=== PATIENT | male | born 1960 | race Caucasian/White ===

== ENCOUNTER 2023-08-31 09:59 | Outpatient (REF) | payer MEDICARE, SELFPAY ==
--- NOTE | ~2023-08-31 | XR_ITS ---
EXAMINATION: XR LEFT WRIST CLINICAL INFORMATION: Pain in left wrist, ORIF for fracture. COMPARISON: 09/05/2023 fluoroscopy in OR. TECHNIQUE: 4 views of the left wrist. FINDINGS: There is a comminuted, impacted, mildly displaced fracture of the distal radius which may extend to the distal articular surface. Mildly displaced, impacted fracture of the distal ulna. XR/XR wrist LT w scaphoid IMPRESSION: Comminuted, impacted, mildly displaced fracture of the distal radius which may extend to the distal articular surface. Mildly displaced, impacted fracture of the distal ulna. Images were presented for interpretation subsequent to performance of intraoperative ORIF on September 05, 2023. Please refer to that report for more detailed evaluation.
== END 2023-08-31 10:00 | disposition home or self-care (01) ==
LOC: HO.HOSX 09:59
PROVIDERS: Visit Provider Orthopaedic Surgery
DX: S52.502A Unspecified fracture of the lower end of left radius, initial encounter for closed fracture (principal); S52.602A Unspecified fracture of lower end of left ulna, initial encounter for closed fracture; W19.XXXA Unspecified fall, initial encounter; Y93.9 Activity, unspecified; Y92.9 Unspecified place or not applicable; Y99.9 Unspecified external cause status
CPT/HCPCS: 73110; 99202

== ENCOUNTER 2023-08-31 09:59 | Outpatient (AMB) | payer MEDICARE, SELFPAY ==
--- NOTE | 2023-08-31 10:29 | MHC.OFFVIS ---
Vital Signs 08/31/23 10:34 Height 6 ft Weight 220 lb BMI 29.8 Handedness Right Intake Visit Reasons: FC- LT wrist distal radius fx Intake Note: Moises is a 62 year old right hand dominant who presents today for a evaluation of his left wrist fx, DOI 08/29/23. Patient reports he was doing yard work and he was pulling on a vine and he fell landing on the left wrist. He states having throbbing pain on both sides of the wrist. Having numbness in his fingers with swelling. Allergies No Known Allergies Allergy (Verified 08/31/23 10:32) HPI HPI FC- LT wrist distal radius fx: Details: Moises is a 62 year old right hand dominant man who presents for a left wrist fracture. He fell while doing yard work, pulling louie, landing on his left wrist, DOI: 08/29/23. He was seen a [facility] and placed in a wrist splint. He complains of pain about his whole wrist. He denies having any pain about the elbow or proximal forearm.. He denies having trouble with numbness and tingling. He says he smokes occasionally. PFSH Medical History (Updated 08/31/23 @ 10:48 by Moi Baumann) Hx of hypotension Social History (Updated 08/31/23 @ 10:34 by Yannick Benoit) Alcohol intake: current Alcohol intake frequency: holidays/special occasions only Patient Tobacco Use Status: Never used Tobacco Current occupational status: unemployed Current occupation: right hand dominant Review of Systems Const All systems reviewed & are unremarkable except as noted in HPI and below Physical Exam Vital Signs: BMI result Body Mass Index 29.8 Const General: cooperative, healthy appearing and no acute distress Orientation/consciousness: patient oriented x3 HEENT Head: Yes normocephalic and Yes atraumatic Eyes EOM: EOMs intact bilaterally Resp Effort & Inspection: normal respiratory effort and able to speak in complete sentences Cardio Jugular venous distension: no JVD Skin General skin exam: turgor normal Rashes: no rashes Neuro General: patient oriented x3 Extrem Other: Evaluation of Left Upper Extremity: The patient is alert, oriented, and in no acute distress Sensation intact to the tips of the digits. He can weakly bring his fingers closed towards a fist and then back into extension. He is most tender to palpation about the distal radius and distal ulna. He does have some swelling and ecchymosis. He is not particularly tender to palpation about the left elbow or proximal forearm squeeze. Good elbow flexion and extension without pain. No lacerations or evidence of open fracture. Radiographs: 3 views of the left wrist, plus a scaphoid view, were taken and viewed by me today in clinic. They show a comminuted distal radius intra-articular extension and some dorsal translation. There is also a nondisplaced fracture through the neck of the distal ulna, and also at the base of the ulnar styloid. Psych Appearance: grossly normal Affect: normal affect Attitude: cooperative Assessment & Plan Assessment & Plan (1) Fracture of left distal radius: Code(s): S52.502A - Unspecified fracture of the lower end of left radius, initial encounter for closed fracture Category: Medical (2) Fracture of distal end of left ulna: Code(s): S52.602A - Unspecified fracture of lower end of left ulna, initial encounter for closed fracture Category: Medical Plan Assessment & Plan: 1. Left distal radius fracture, comminuted & intra-articular From a fall, DOI: 08/29/23 2. Left distal ulna fracture, at the neck of the ulna From a fall, DOI: 08/29/23 I educated him about this condition I discussed operative and non-operative treatment options The patient would like to proceed with surgery The risks and benefits of operative treatment were discussed with the patient and the patient wishes to proceed with surgery. These risks include, but are not limited to risk of damage to blood vessels, nerves, tendons, infection, recurrence, incomplete relief of preoperative symptoms, persistent pain, possible need for further surgery and the risks associated with regional blocks and anesthesia. The plan is to take the patient to the operating room sometime on 09/05/23 for the following procedures: 1. Left distal radius ORIF, under general 2. Possible left distal ulna ORIF, under general All of the preoperative paperwork including the consent was reviewed today. All the patient's questions were answered. The patient understands that they will be contacted by our associate professor of surgery soon to schedule this procedure He denies Diabetes, blood thinners, asthma, heart, lung, kidney issues Scribed for Yumi Alberto MD by Moi Baumann pediatrician/medical doctor, on 08/31/23 at 10:50 AM, EST. Orders: Orders XR wrist LT w scaphoid Today M25.532 - Pain in left wrist Medications: New hydrocodone-acetaminophen 5-325 mg Partial Fill upon patient request. 1 tab PO Q4-6H PRN 10 tabs 0RF pain Coding Level of Care Code New Pt Level 4 (23724) Diagnoses Fracture of left distal radius S52.502A Fracture of distal end of left ulna S52.602A
[2023-08-31 10:34] VITALS: BMI 29.8
== END 2023-08-31 11:36 | disposition home or self-care (01) ==
PROVIDERS: Visit Provider Orthopaedic Surgery
DX: S52.502A Unspecified fracture of the lower end of left radius, initial encounter for closed fracture (principal); S52.602A Unspecified fracture of lower end of left ulna, initial encounter for closed fracture
CPT/HCPCS: 99204

== ENCOUNTER 2023-09-05 07:26 | Day surgery (SDC) | payer MEDICARE, SELFPAY ==
[2023-09-05] VITALS (7 sets, daily range): BP systolic 119–190; BP diastolic 75–89; PULSE 68–84; RESP 12–18; TEMP 36.1–36.9; O2SAT 93–97; BMI 30.8
--- NOTE | ~2023-09-05 | FL_ITS ---
EXAMINATION: XR FLUOROSCOPY WITH IMAGES CLINICAL INFORMATION: Left radius ORIF COMPARISON: None available. TECHNIQUE: Fluoroscopy Supervised By: Dr. Yumi Alberto. Fluoroscopy Time: 23.5 sec. Cumulative Dose: 0.6528 mGy. DAP: 0.0935 Gycm2. Images: 4. FINDINGS: Intraoperative fluoroscopy and spot films were performed during a procedure in the OR. There is a comminuted fracture involving the distal radius and there is placement of a plate and screw device. An associated nondisplaced ulnar fracture is seen as well. Please correlate with Dr. Dr. Yumi Alberto's report for complete details. FL/FL guidance in OR IMPRESSION: Intraoperative fluoroscopy and spot films were obtained. Please see Dr. Dr. Yumi Alberto's report for complete details.
[2023-09-05] MEDS: Lactated Ringers 1,000 ML 100 ML IVCONT (08:14)
--- NOTE | 2023-09-05 08:26 | HO.ANESPROP2 ---
HPI - Anesthesia Eval Consult details Narrative: for radius fracture repair PMFSH Active Problems Active Problems: All Active Problems Fracture of distal end of left ulna (Acute) Fracture of left distal radius (Acute) Past Medical History Medical History Asthma High cholesterol Hypertension Hx of hypotension Family History Family history of problems with anesthesia: No Surgical History Surgical History History of elbow surgery Previous back surgery History of Problems with Anesthesia: No Social History Social History Alcohol intake: current Alcohol intake frequency: holidays/special occasions only Patient Tobacco Use Status: Former Tobacco user Tobacco use type: Cigarette Years Smoked: 25 Smoked in Last 30 Days: No Use of substances other than those prescribed or required for medical reasons: Yes Substance Use Frequency: Occasionally Are you DNR?: No Advance Directives: No Advance Directives Information Provided: Yes Current occupational status: unemployed Current occupation: right hand dominant Meds Allergies Allergy/AdvReac Type Severity Reaction Status Date / Time No Known Allergies Allergy Verified 09/05/23 07:35 Active Medications: Current Medications Albuterol Sulfate (Albuterol Sulfate (0.083%) 2.5 Mg/3 Ml Vial.Neb) 2.5 mg INHALE PREOP ONE Stop: 09/05/23 08:26 Lactated Ringer's (Lr) 1,000 mls @ 100 mls/hr IVCONT .Q10H JESS Last Admin: 09/05/23 08:14 Dose: 100 mls/hr Home Medications ?Medication ?Instructions ?Recorded ?Confirmed ?Last Taken ?Type acetaminophen 325 mg capsule 650 mg PO QID PRN Pain 08/31/23 09/05/23 Unknown History albuterol sulfate 90 mcg/actuation 2 puff inhalation Q6H PRN wheezing 09/05/23 09/05/23 Unknown History aerosol inhaler atorvastatin 10 mg tablet 10 mg PO DAILY 09/05/23 09/05/23 Unknown History budesonide-formoterol HFA 160 2 puff inhalation BID 09/05/23 09/05/23 09/04/23 History mcg-4.5 mcg/actuation aerosol inhaler (Breyna) fenofibrate micronized 134 mg 134 mg PO DAILY 09/05/23 09/05/23 Unknown History capsule lisinopril 20 mg tablet 20 mg PO DAILY 09/05/23 09/05/23 09/04/23 History metoprolol tartrate 25 mg tablet 25 mg PO BID 09/05/23 09/05/23 09/04/23 History pantoprazole 40 mg tablet,delayed 40 mg PO DAILY 09/05/23 09/05/23 Unknown History release sertraline 100 mg tablet 100 mg PO DAILY 09/05/23 09/05/23 Unknown History trazodone 50 mg tablet 50 mg PO BEDTIME PRN insomnia 09/05/23 09/05/23 Unknown History Exam Height,Weight and Vital Signs: Height 6 ft Weight 103.056 kg Last Vital Signs Temp 98.4 F 09/05/23 07:58 Pulse 69 09/05/23 07:58 Resp 16 09/05/23 07:58 BP 190/89 H 09/05/23 07:58 Pulse Ox 96 09/05/23 07:58 O2 Del Method Room Air 09/05/23 07:58 Airway Mallampati Class: III (facial hair , potentially difficulty visualization ) TM Dist: <=3cm Neck ROM: Full Heart: rrr Lungs: cta Assessment and Plan Assessment Anesthesia Assessment: Anesthesia Plan Discussed and Chart Reviewed Final Anesthetic Review Family History of Problems with Anesthesia: No History of Problems with Anesthesia: No NPO: Yes ASA Class: III (on antidepressants and metaprolol, and pantoprazole) Final Preanesthetic Review: No Changes in Pt Med Stat, Meds/Allgs Chart Reviewed, Consent Obtained/Reviewed and Anes Risks/Benef Reviewed Patient Risk: Intermediate Procedure Risk: Intermediate Anesthetic Plan Anesthetic Plan: GA and Regional Block Disposition: Standard PACU
[2023-09-05] MEDS: Albuterol Sulfate (0.083%) 2.5 MG/3 ML VIAL.NEB INHALE (08:35)
--- NOTE | 2023-09-05 10:00 | PC.NURSE ---
Patient in SSS, poor historian, little to no history/med list in computer. History and med list obtained to best of this nurses ability. Lung sounds wheezing throughout, inspiratory and expiratory, SaO2 max 96%. Patient denies asthma/COPD or any respiratory disease. Former smoker. Takes inhalers daily. Dr. Jain made aware. Albuterol Neb ordered, tolerated well. Lung sounds clearer post treatment, SaO2 remains around 96%. Patient put on 2L O2 via NC prior to block per MD request.
--- NOTE | 2023-09-05 10:21 | P.OP_ITS ---
Operative Note Operative Note Date of Service: 09/05/23 Narrative: Operative Note Narrative: Preop diagnosis: Left Distal radius fracture, intra-articular Postop diagnosis: Same Procedure: 1. Left Distal radius fracture open reduction internal fixation, 2 part intra-articular Surgeon: Yumi Alberto MD Anesthesia: General anesthesia plus regional block Findings: Intra-articular extension. Significant comminution at the metaphyseal aspect of the fracture. Implants: A 3 hole Accu Med volar locking plate, with 5 X 2.3 mm locking pegs/screws, and 3 3.5 mm cortical screws Tourniquet time: 45 minutes EBL: 5.0 ml Specimen: None Drains: None Complications: None Disposition: Brought to the recovery room in stable condition Plan: Follow-up in 10-14 days for wound check, suture removal and postop radiographs The patient will be placed in either a short-arm cast . Encouraged no lifting of anything heavier than a cell phone. Please encourage active and passive range of motion of the digits. Follow-up at 4-5 weeks postop for repeat radiographs. Indications: The patient is a 62 year old man with left displaced intra- articular distal radius fracture . The risks and benefits of operative treatment, including but not limited to risk of damage to blood vessels, nerves, tendons, infection, recurrence, persistent pain or numbness, incomplete resolution of preoperative symptoms, or need for further surgery were discussed with the patient and they wished to proceed with surgery. Procedure: Once consent was obtained patient was brought back to the operating suite and placed in the operating table in a supine position. A regional block was performed by the anesthesia team. Perioperative antibiotics and anesthesia was administered by the anesthesia team. A tourniquet was applied to the proximal aspect of the left upper extremity and the limb was prepped and draped in a standard surgical fashion. The limb was elevated exsanguinated with Esmarch bandage and the tourniquet inflated to 250 mm of mercury for a total tourniquet time of 45 minutes. The FluoroScan was used throughout the case to assess our reduction, and facilitate implant placement. A gentle closed reduction was 1st performed on the patient's left distal radius fracture. Was assessed radiographically before proceeding with the reduction internal fixation. I then made an 8 cm longitudinal incision over the distal aspect of the flexor carpi radialis tendon. The incision was made through the skin to the subcutaneous tissue using a 15. Blade. Then carefully dissected down to flexor carpi radialis tendon she tenotomy scissors. The FCR tendon sheath was then incised longitudinally using tenotomy scissors under direct visualization. The FCR tendon was then retracted ulnarly. I then made a longitudinal incision in the volar forearm fascia through the floor of FCR tendon sheath using tenotomy scissors under direct visualization. I identified the interval between the radial artery and the flexor tendons. This interval was developed further with my index finger, releasing some of the muscular fibers of the flexor pollicis longus. A dull weatlander retractor was then placed. I then created an ulnarly based flap of the pronator quadratus by releasing the radial and distal edges using a 15. Blade. A Goldman elevator was used to elevate the pronator quadratus from the volar surface of the distal radius. This then revealed to us our distal radius fracture. An open reduction was then performed on our distal radius fracture. I then placed a short standard 3 hole Accu Med volar locking plate on the volar surface of the distal radius. I placed a single K-wire through the distal aspect of the plate and into the distal radius. This was assessed using fluoroscopic images. I was satisfied with the placement of our plate. I then placed 5 X 2.3 mm locking screws/pegs in the distal aspect of the plate and distal radius by 1st drilling bicortically with a 1.8 mm drill bit, measuring with a depth gauge, and placing the appropriate length locking screws/pegs. The placement of our plate and screws was then assessed again using fluoroscopic images. The once satisfied with the placement of the volar locking plate and screws on the distal aspect of the distal radius, the plate was then reduced to the shaft of the radius. I then placed 3 3.5 mm cortical screws to the proximal aspect of the plate and into the shaft of the radius. This was done by 1st drilling bicortically with a 2.8 mm drill bit, measuring with a depth gauge, and placing the appropriate length screw. Final radiographs were then obtained. The DRUJ was assessed and found to be stable on exam. I was satisfied with our reduction and placement of all implants. At this point the wound was irrigated with normal saline. The tourniquet was then deflated and hemostasis was obtained with a brief period of local pressure and bipolar monopolar electrocautery. The subcutaneous layer was then reapproximated using some 4-0 Vicryl suture, and the skin edges were reapproximated using some 5 0 Prolene suture. The wound was then infiltrated with some 1% lidocaine with epinephrine postop pain control. A sterile dressing and a short dorsal splint allowing for active flexion and extension of the digits was applied. The patient appears to have tolerated the procedure well and with no complications. All digits were well vascularized conclusion of the case.
--- NOTE | 2023-09-05 10:21 | MHC.SHP ---
Pre-Procedural Eval Section A - 24 Hr Update-Section A only Date of Service: 09/05/23 The patient is an INPATIENT: No Changes since office visit: No Cold of Flu in the past 2 weeks, No New Medical Problems, No Changes in Medication and No Patient answered all questions The patient has been examined within 24 hours of the surgical procedure. The History & Physical has been completed within 30 days and I have reviewed it.: Yes Section B - Complete if H&P > 30 days Chief Complaint: Unspecified fracture of the lower end of left radi Allergies: Allergies Allergy/AdvReac Type Severity Reaction Status Date / Time No Known Allergies Allergy Verified 09/05/23 07:35 Plan I have reviewed the history and physical and performed a pertinent physical examination on my patient. No changes have occurred unless specified. Time Spent With Patient Time: Total time managing care of this patient today ____ minutes.
== END 2023-09-05 13:45 | disposition home or self-care (01) ==
PROVIDERS: Visit Provider Orthopaedic Surgery
PROC: (CPT 25608; principal; 2023-09-05 09:30)
DX: S52.502A Unspecified fracture of the lower end of left radius, initial encounter for closed fracture (principal); S52.602A Unspecified fracture of lower end of left ulna, initial encounter for closed fracture; W18.39XA Other fall on same level, initial encounter; Y93.H2 Activity, gardening and landscaping; Y92.007 Garden or yard of unspecified non-institutional (private) residence as the place of occurrence of the external cause; Y99.9 Unspecified external cause status; J45.909 Unspecified asthma, uncomplicated; I10 Essential (primary) hypertension; E78.5 Hyperlipidemia, unspecified; Z79.02 Long term (current) use of antithrombotics/antiplatelets; Z79.899 Other long term (current) drug therapy
CPT/HCPCS: 25608; 94640; C1713; J0131; J0665; J0690; J1100; J2250; J2405; J2704; J2795; J3010

== ENCOUNTER → 2023-09-05 07:26 | Outpatient (BNV) | payer MEDICARE, SELFPAY | PROVIDERS: Visit Provider Orthopaedic Surgery | DX: S52.572A Other intraarticular fracture of lower end of left radius, initial encounter for closed fracture (principal) | CPT/HCPCS: 25608 ==

== ENCOUNTER 2023-09-21 09:59 | Outpatient (REF) | payer MEDICARE, SELFPAY ==
--- NOTE | ~2023-09-21 | XR_ITS ---
EXAMINATION: XR WRIST, LEFT CLINICAL INFORMATION: Left wrist pain. COMPARISON: Left wrist radiographs dated 08/31/2023. TECHNIQUE: PA, lateral, and oblique views of the left wrist. FINDINGS: Distal radial volar stabilization plate with fixation screws. No hardware fracture or perihardware lucency to suggest loosening or infection. The stabilization plate traverses a comminuted distal radial fracture with improved anatomic alignment when compared to the prior radiographs. Minimal new bone/callus formation along the periphery of the fracture. Redemonstration of the distal ulnar fracture with similar anatomic alignment when compared to the prior examination. Minimal new bone/callus formation. Mild joint space narrowing with small marginal osteophytes at the triscaphe and first carpometacarpal joint. No osseous erosion. XR/XR wrist LT min 3V IMPRESSION: 1. Distal radial ORIF without evidence of hardware complication. 2. Distal radial fracture with improved anatomic alignment. Minimal new bone/callus formation. 3. Distal ulnar fracture in unchanged anatomic alignment. Minimal new bone/callus formation. 4. 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
== END 2023-09-21 10:00 | disposition home or self-care (01) ==
LOC: HO.HOSX 09:59
PROVIDERS: Visit Provider Orthopaedic Surgery
DX: S52.502D Unspecified fracture of the lower end of left radius, subsequent encounter for closed fracture with routine healing (principal); S52.602D Unspecified fracture of lower end of left ulna, subsequent encounter for closed fracture with routine healing
CPT/HCPCS: 73110; 99212

== ENCOUNTER 2023-09-21 10:42 | Outpatient (AMB) | payer MEDICARE, SELFPAY ==
--- NOTE | 2023-09-21 10:54 | MHC.OFFVIS ---
Vital Signs 09/21/23 11:03 Height 6 ft Weight 220 lb BMI 29.8 Handedness Right Intake Visit Reasons: PO LT distal radius ORIF poss ulna 09/05/23 AR Intake Note: Moises is a 62 year old right hand dominant male who presents today for a post op appointment s/p LT distal radius ORIF poss ulna 09/05/23 AR. He states that his is feeling a bit sore around his wrist. Denies numbness and tingling in his fingers. Allergies No Known Allergies Allergy (Verified 09/21/23 11:05) HPI HPI PO LT distal radius ORIF poss ulna 09/05/23 AR: Details: Moises is a 62 year old right hand dominant man who returns S/P left distal radius ORIF & a distal ulna fracture. He fell while doing yard work, pulling louie, landing on his left wrist, DOI: 08/29/23. He says he has some soreness in his wrist, but feels better than prior to surgery He denies having trouble with numbness and tingling. He says he smokes occasionally. [facility] [place] Medical History Asthma High cholesterol Hypertension Hx of hypotension Surgical History History of elbow surgery Previous back surgery Social History Alcohol intake: current Alcohol intake frequency: holidays/special occasions only Patient Tobacco Use Status: Former Tobacco user Tobacco use type: Cigarette Years Smoked: 25 Current occupational status: unemployed Current occupation: right hand dominant Review of Systems Const All systems reviewed & are unremarkable except as noted in HPI and below Physical Exam Vital Signs: BMI result Body Mass Index 29.8 Const General: no acute distress and alert Orientation/consciousness: patient oriented x3 Neuro General: patient oriented x3 Extrem Other: The patient was alert oriented and in no acute distress The incision is healing well with no erythema drainage or evidence of infection. Sutures removed and Steri-Strips applied He is no longer tender over the fracture site. He can make a fist and extend all his digits Wrist pronation: 60 degrees Wrist supination: 60 degrees Sensation is intact to all digits Cap refill is brisk Radiographs: 3 views of the left wrist, plus a scaphoid view, were taken and viewed by me today in clinic. They show a distal radius fracture with satisfactory fracture alignment and position of all implants. There is also a nondisplaced fracture through the neck of the distal ulna, and also at the base of the ulnar styloid, with satisfactory fracture alignment. Psych Appearance: grossly normal Affect: normal affect Attitude: cooperative Assessment & Plan Assessment & Plan (1) Fracture of left distal radius: Code(s): S52.502A - Unspecified fracture of the lower end of left radius, initial encounter for closed fracture Category: Medical (2) Fracture of distal end of left ulna: Code(s): S52.602A - Unspecified fracture of lower end of left ulna, initial encounter for closed fracture Category: Medical Plan Assessment & Plan: 1. Left distal radius fracture, comminuted & intra-articular, S/P ORIF From a fall, DOI: 08/29/23 DOS: 09/05/23 2. Left distal ulna fracture, at the neck of the ulna From a fall, DOI: 08/29/23 The patient appears to be doing well post-operatively I educated him about the post-operative course He was placed in a short-arm cast to be worn for the next 2 weeks I discussed activity modifications, he is to lift nothing heavier than a cellphone for the next 4 weeks He will perform gentle finger ROM & wrist pronosupination exercises at home He should avoid any underwater activities at this time He will follow up in 2 weeks with MAYURI Eisenberg, with X-rays 3V L wrist Anticipate placement in velcro wrist splint, still with some precautions with regards to activities. Scribed for Yumi Alberto MD by Moi Baumann, medical records auditor, on 09/21/23 at 11:10 AM, EST. Orders: Orders XR wrist LT min 3V Today M25.532 - Pain in left wrist Scribe Plan - Not visible on output: Scribed for Yumi Alberto MD by Moi Baumann, medical records auditor, on [ ] at [ ], EST. Coding Level of Care Code Global (67484) Diagnoses Fracture of left distal radius S52.502A Fracture of distal end of left ulna S52.602A
[2023-09-21 11:03] VITALS: BMI 29.8
== END 2023-09-21 11:43 | disposition home or self-care (01) ==
PROVIDERS: Visit Provider Orthopaedic Surgery
DX: S52.502A Unspecified fracture of the lower end of left radius, initial encounter for closed fracture (principal); S52.602A Unspecified fracture of lower end of left ulna, initial encounter for closed fracture
CPT/HCPCS: 99024

== ENCOUNTER 2023-10-05 09:42 | Outpatient (AMB) | payer MEDICARE, SELFPAY ==
--- NOTE | 2023-10-05 10:21 | MHC.OFFVIS ---
Vital Signs 10/05/23 10:22 Height 6 ft Weight 220 lb BMI 29.8 Handedness Right Intake Visit Reasons: PO LT distal radius ORIF poss ulna 09/05/23 AR Intake Note: Moises is a 62 year old right hand dominant male who presents today post operatively S/P Left Distal radius fracture ORIF 09/05/23 w AR. Patient reports he has pain with twisting motions of his wrist. He has been working on ROM daily and states he does not feel any stiffness in his hand or fingers. Allergies No Known Allergies Allergy (Verified 10/05/23 10:24) HPI HPI PO LT distal radius ORIF poss ulna 09/05/23 AR: Details: Moises is a 62 year old right hand dominant man who returns S/P left distal radius ORIF & a distal ulna fracture, DOS: 09/05/23. He fell while doing yard work, pulling louie, landing on his left wrist, DOI: 08/29/23. he says he is doing well, with some discomfort, described as soreness, when making twisting motions with his wrist. He has been working on ROM exercises at home and denies any stiffness. He denies having trouble with numbness and tingling. He says he smokes occasionally. [facility] Medical History Asthma High cholesterol Hypertension Hx of hypotension Surgical History History of elbow surgery Previous back surgery Social History Alcohol intake: current Alcohol intake frequency: holidays/special occasions only Patient Tobacco Use Status: Former Tobacco user Tobacco use type: Cigarette Years Smoked: 25 Current occupational status: unemployed Current occupation: right hand dominant Physical Exam Vital Signs: BMI result Body Mass Index 29.8 Const General: no acute distress and alert Orientation/consciousness: patient oriented x3 Neuro General: patient oriented x3 Extrem Other: The patient was alert oriented and in no acute distress The incision is well-healed with no erythema drainage or evidence of infection. No tenderness over the fracture site. He can make a fist and extend all his digits Wrist pronation: 60 degrees Wrist supination: 60 degrees Sensation is intact to all digits Cap refill is brisk Radiographs: 3 views of the left wrist, plus a scaphoid view, were taken and viewed by me today in clinic. They show a distal radius fracture with satisfactory fracture alignment, position of all implants, and good evidence of interval bony healing. There is also a nondisplaced fracture through the neck of the distal ulna, and also at the base of the ulnar styloid, with satisfactory fracture alignment and good evidence of interval bony healing. Psych Appearance: grossly normal Affect: normal affect Attitude: cooperative Assessment & Plan Assessment & Plan (1) Fracture of left distal radius: Code(s): S52.502A - Unspecified fracture of the lower end of left radius, initial encounter for closed fracture Category: Medical (2) Fracture of distal end of left ulna: Code(s): S52.602A - Unspecified fracture of lower end of left ulna, initial encounter for closed fracture Category: Medical Plan Assessment & Plan: 1. Left distal radius fracture, comminuted & intra-articular, S/P ORIF From a fall, DOI: 08/29/23 DOS: 09/05/23 2. Left distal ulna fracture, at the neck of the ulna From a fall, DOI: 08/29/23 The patient appears to be doing well post-operatively I educated him about the post-operative course He was fitted for a velcro wrist splint to be worn with daily activities out of the house for the next 4 weeks He will remove his splint when at home & at rest, or to work on ROM exercises I discussed activity modifications, he is to use his hand for lightweight lifting activities only. He will continue to work on ROM exercises He will follow up in 3-4 weeks with MAYURI Eisenberg, no X-rays unless he has pain or a new injury Scribed for MAYURI Zambrano by Moi Baumann, medical office technician, on 10/05/23 at 10:30 AM, EST. Orders: Orders XR wrist LT min 3V Today M25.532 - Pain in left wrist Scribe Plan - Not visible on output: Scribed for Yumi Alberto MD by Moi Baumann, medical office technician, on [ ] at [ ], EST. Coding Level of Care Code Global (33534) Diagnoses Fracture of left distal radius S52.502A Fracture of distal end of left ulna S52.602A
[2023-10-05 10:22] VITALS: BMI 29.8
== END 2023-10-05 10:55 | disposition home or self-care (01) ==
DX: S52.502A Unspecified fracture of the lower end of left radius, initial encounter for closed fracture (principal); S52.602A Unspecified fracture of lower end of left ulna, initial encounter for closed fracture
CPT/HCPCS: 99024

== ENCOUNTER 2023-10-05 10:20 | Outpatient (REF) | payer MEDICARE, SELFPAY ==
--- NOTE | ~2023-10-05 | XR_ITS ---
EXAMINATION: XR WRIST, LEFT CLINICAL INFORMATION: Left wrist pain. COMPARISON: Most recent left wrist radiographs dated 09/21/2023. TECHNIQUE: PA, lateral, and oblique views of the left wrist. FINDINGS: Redemonstration of a distal radial stabilization plate with fixation screws. No hardware fracture. No perihardware lucency to suggest loosening or infection. Redemonstration of a distal radial fracture in unchanged anatomic alignment with interval new bone/callus formation. Distal ulnar fracture in unchanged anatomic alignment with interval new bone/callus formation. No new fracture or dislocation. Additional findings are unchanged. XR/XR wrist LT min 3V IMPRESSION: 1. Distal radial ORIF without evidence of hardware complication. Distal radial fracture in unchanged anatomic alignment with interval new bone/callus formation. 2. Distal ulnar fracture in unchanged anatomic alignment with interval new bone/callus formation.
== END 2023-10-05 10:21 | disposition home or self-care (01) ==
LOC: HO.HOSX 10:20
DX: S52.502D Unspecified fracture of the lower end of left radius, subsequent encounter for closed fracture with routine healing (principal); S52.602D Unspecified fracture of lower end of left ulna, subsequent encounter for closed fracture with routine healing
CPT/HCPCS: 73110; 99212

== ENCOUNTER 2023-11-04 12:42 | Outpatient (AMB) | payer MEDICARE, SELFPAY ==
--- NOTE | 2023-11-04 12:48 | A.OFFVIS_ITS ---
Vital Signs 11/04/23 12:50 Handedness Right Intake Visit Reasons: PO LT distal radius ORIF poss ulna 09/05/23 AR Intake Note: Moises is a 62 year old male who presents to the office today for a PO LT distal radius ORIF poss ulna 09/05/23 AR. Patient expresses he is still having pain w/ ROM and swelling in left wrist. He hasn't been wearing his wrist brace since he is unable to find it but states when he did wear it he was provided with relief. Allergies No Known Allergies Allergy (Verified 11/04/23 12:52) HPI HPI PO LT distal radius ORIF poss ulna 09/05/23 AR: Details: Patient is a 62-year-old male who presents for postoperative evaluation of left distal radius ORIF, DOS 09/05/2023. Today, the patient reports that he is feeling well, and then he is only experiencing minor discomfort with range of motion in the left distal radius, but no pain at rest. The patient does report that he does continue to experience mild swelling in the left distal radius, but that this has improved since last visit. Patient reports that he was given a Velcro wrist splint at last visit, and that this did provide him with relief, however he did miss place his Velcro wrist splint. The patient reports that he has been trying to avoid any heavy lifting with the left hand, but ?once or twice? he tried to pick something up too heavy and felt a twinge of pain in his left wrist. Patient reports no numbness or tingling in the left hand. No other acute complaints or concerns at this time. [facility] Medical History Asthma High cholesterol Hypertension Hx of hypotension Surgical History History of elbow surgery Previous back surgery Social History Alcohol intake: current Alcohol intake frequency: holidays/special occasions only Patient Tobacco Use Status: Former Tobacco user Tobacco use type: Cigarette Years Smoked: 25 Current occupational status: unemployed Current occupation: right hand dominant Physical Exam Extrem Other: Patient is alert, oriented, and in no acute distress. Neuro: Patient reports normal sensation to all digits of the left hand Vascular: Cap refill brisk Pain: Patient reports no tenderness to palpation about the left wrist ROM: Patient is able to make a closed fist Good finger cross Patient is able to flex the left wrist to approximately 50-60 degrees Patient is also able to extend the left wrist to approximately 60 degrees Skin: Well-healed incision site about the volar aspect of the left wrist No erythema, drainage, evidence of infection noted General: No ecchymosis, erythema, or evidence of infection. Psych: Appears grossly normal Affect normal Attitude cooperative Assessment & Plan Assessment & Plan (1) Fracture of left distal radius: Code(s): S52.502A - Unspecified fracture of the lower end of left radius, initial enc ounter for closed fracture Category: Medical (2) Fracture of distal end of left ulna: Code(s): S52.602A - Unspecified fracture of lower end of left ulna, initial encounter for closed fracture Category: Medical Plan 1. Left distal radius fracture status post ORIF DOS 09/05/2023 Patient appears to be recovering well postoperatively Patient is educated about the typical recovery course I Informed the patient that if he would feel more comfortable wearing a Velcro wrist splint, he can purchase 1 at the pharmacy but I only want him wearing it for the next 1-2 weeks before coming out of it altogether. Patient is amenable to this plan Patient has adequate range of motion, no need for occupational therapy at this time Patient will follow-up in 4 weeks if needed for any acute concerns, otherwise patient may cancel appointment Coding Level of Care Code Global (14098) Diagnoses Fracture of left distal radius S52.502A Fracture of distal end of left ulna S52.602A
== END 2023-11-04 13:05 | disposition home or self-care (01) ==
DX: S52.502A Unspecified fracture of the lower end of left radius, initial encounter for closed fracture (principal); S52.602A Unspecified fracture of lower end of left ulna, initial encounter for closed fracture
CPT/HCPCS: 99024

== ENCOUNTER → 2023-11-04 12:42 | Outpatient (BNVA) | payer MEDICARE, SELFPAY | DX: S52.502D Unspecified fracture of the lower end of left radius, subsequent encounter for closed fracture with routine healing (principal); S52.602D Unspecified fracture of lower end of left ulna, subsequent encounter for closed fracture with routine healing | CPT/HCPCS: 99212 ==